=== PATIENT | male | born 1970 | race Caucasian/White ===

== ENCOUNTER 2017-01-20 20:21 | Emergency (ER) | payer MEDICAID ==
[2017-01-20 20:32] VITALS: RESP 18; O2SAT 98
--- NOTE | 2017-01-20 20:38 | EDPHY ---
H & P Stated Complaint: opiate detox at [facility] needs prescriptions Time Seen by Provider: 01/20/17 20:37 HPI/ROS: CHIEF COMPLAINT: Requesting medications for opioid dependence HISTORY OF PRESENT ILLNESS: The patient is referred to the emergency department [facility] for consideration of a short course of Librium to manage his symptoms of narcotic withdrawal. The patient uses approximately 0.25 g of heroin a day. He has been cutting back over the past several weeks. He is interested in complete abstinence at this point time. The patient denies any acute symptoms of withdrawal currently but is fairly certain he will develop more significant symptoms such as nausea and shakiness. The patient denies any suicidal or homicidal ideation. The patient denies any additional acute medical complaints. REVIEW OF SYSTEMS: A comprehensive 10 point review of systems is otherwise negative aside from elements mentioned in the history of present illness. Source: Patient - Personal History Current Tetanus/Diphtheria Vaccine: Yes Tetanus Vaccine Date: 2012 - Medical/Surgical History Hx Asthma: No Hx Chronic Respiratory Disease: No Hx Diabetes: No Hx Cardiac Disease: No Hx Renal Disease: No Hx Cirrhosis: No Hx Alcoholism: No Hx HIV/AIDS: No Hx Splenectomy or Spleen Trauma: No Other PMH: heroin addiction. ortho surg finger and foot, - Social History Smoking Status: Current every day smoker - Physical Exam Exam: General Appearance: Alert, no distress Eyes: Pupils equal and round no pallor or injection ENT, Mouth: Mucous membranes moist Respiratory: There are no retractions, lungs are clear to auscultation Cardiovascular: Regular rate and rhythm Gastrointestinal: Abdomen is soft and nontender, no masses, bowel sounds normal Neurological: A&O, normal motor function, normal sensory exam, normal cranial nerves Skin: Warm and dry, no rashes Musculoskeletal: Neck is supple nontender Extremities: symmetrical, full range of motion Psychiatric: Patient is oriented X 3, there is no agitation Constitutional: Initial Vital Signs Temperature (C) 37.6 C 01/20/17 20:27 Heart Rate 83 01/20/17 20:27 Respiratory Rate 18 01/20/17 20:27 Blood Pressure 108/67 01/20/17 20:27 O2 Sat (%) 98 01/20/17 20:27 O2 Delivery Mode Room Air Allergies/Adverse Reactions: PEANUT BUTTER Allergy (Intermediate, Uncoded 01/20/17 20:32) hives and lip swelling Home Medications: Medication Instructions Recorded NK [No Known Home Meds] 03/11/16 Medical Decision Making ED Course/Re-evaluation: The patient presents to the ED requesting Librium for narcotic withdrawal. The patient is in no acute distress at this point time. His neurologic exam is normal. His vital signs are stable. He has no evidence of significant withdrawal syndrome currently. The patient will be discharged to the [facility] with a prepack for Librium. He is given customary aftercare instructions and return precautions. Departure - Departure Disposition: Home, Routine, Self-Care Clinical Impression: Narcotic dependence Condition: Good Instructions: Narcotic Abuse (ED) Additional Instructions: 1. Please return to the [facility] with the medications you have been provided for treatment of your narcotic dependence. 2. Please return to the ED for intractable vomiting or other concerns. Referrals: Javy Benitez MD [Primary Care Provider] - As per Instructions
[2017-01-20] MEDS ORDERED: CHLORDIAZEPOXIDE 25MG PREPK#6 BTL TAKEHOME ONE (20:45)
[2017-01-20 20:54] VITALS: BP 119/75; PULSE 68; TEMP 99.3
[2017-01-20] MEDS ORDERED: ONDANSETRON 4MG PREPACK#2 BTL TAKEHOME ONE (20:55)
== END 2017-01-20 21:07 | disposition home or self-care (01) ==
DX: F11.20 Opioid dependence, uncomplicated (principal); F17.200 Nicotine dependence, unspecified, uncomplicated

== ENCOUNTER 2017-01-21 11:31 | Emergency (ER) | payer MEDICAID ==
[~2017-01-21 11:31] MED LIST: PROMETHAZINE HCL 25 MG SUPPR PR SCH
[2017-01-21] MEDS ORDERED: LORazepam 2 MG/ML INJ IVP ONE (12:36)
[2017-01-21] MEDS ORDERED: NS 1,000 ML IV ONE (12:37)
[2017-01-21] MEDS ORDERED: ONDANSETRON 4 MG/2 ML VIAL IVP ONE (12:37)
--- NOTE | 2017-01-21 12:38 | EDPHY ---
General Narrative: CHIEF COMPLAINT: Opiate withdrawal HISTORY OF PRESENT ILLNESS: Patient complains of nausea, vomiting, opiate withdrawal. He admits to heroin use of nearly 2 years duration. He last injected yesterday morning at 6:00 a.m.. This is a lower dose than normal for him, as he has been attempting to wean himself off. He wants to be clean from her with every time tries, he says that he extended symptoms of withdrawal lasting nearly 10-12 days. He has no chest pain. He has nausea vomiting and diarrhea. He is feeling very anxious about this. He was seen here last night. He was sent to the [facility] with Librium. He took the Librium with seem to help at 1st, but now is no longer helping. He is not suicidal or homicidal He has no other associated complaints or modifying factors. REVIEW OF SYSTEMS: Ten systems reviewed and are negative unless otherwise noted in the HPI PCP: Dr. Gray SPECIALISTS: None PAST MEDICAL HISTORY: Opiate addiction PAST SURGICAL HISTORY: Orthopedic surgery remotely SOCIAL HISTORY: Smoker. No alcohol. Daily heroin use FAMILY HISTORY: Noncontributory EXAMINATION General Appearance: Alert, no distress, diaphoretic Head: normocephalic, atraumatic Eyes: Pupils equal and round, no conjunctival pallor or injection ENT, Mouth: Mucous membranes moist. Airway patent. Neck: Normal inspection, supple, non-tender Respiratory: Lungs are clear to auscultation. No wheezing, rhonchi or crackles Cardiovascular: Regular rate and rhythm. No murmur Gastrointestinal: Abdomen is soft and nontender. No tympany or rigidity. Benign abdominal examination Back: non-tender, no bony abnormalities Neurological: GCS 15. No tremor. A&O, nonfocal, strength symmetric. Skin: Warm and dry, no rash. No petechiae or purpura Extremities: Nontender, no pedal edema Psychiatric: Remorseful for heroin use. Not suicidal. Not homicidal. No delirium. DIFFERENTIAL DIAGNOSES: Including but not limited to opiate withdrawal, heroin abuse, or dependency, nausea vomiting, dehydration MDM: 12:35 p.m. Acute opiate withdrawal approximately 18 hours duration. This is heroin use only, reportedly. He is shaking diaphoretic with vomiting. Vital signs are stable with mild tachypnea. No tachycardia. No hypotension. I have ordered IV fluid, laboratory studies, Ativan, clonidine and Zofran. I will monitor and discussed with case management. He denies any alcohol use or abuse. He does not exhibit any seizure-like activity. He is not encephalopathic or delirious. 1:30 p.m. Patient re-evaluated. Vital signs stable. No vomiting at this time. 2:00 p.m. Case discussed with briefcase sewer, odin. Request her consultation to see if the patient is a candidate for rehabilitation resources. She will evaluate and return my call. 2:40 p.m. Notified by case management manager that the patient would like to go back to the [facility] [place], they would like him to come back. He would like to go with [place] antinausea medication. He is comfortable this plan. 2:55 p.m. Re-evaluated the patient. Mother is still symptomatic he would like to go back on the medications. He has no chest pain. Vital signs are stable. He is not at risk for seizure as he is only withdrawing from opiates and benzodiazepines. He is comfortable this plan. He has a place at the [facility]. We will attempt to provide medication assistance for the clonidine p. o. and promethazine [place]. ED precautions discussed. - History Smoking Status: Current every day smoker - Objective Vital Signs: Initial Vital Signs Temperature (C) 99.0 F 01/21/17 11:35 Heart Rate 68 01/21/17 11:35 Respiratory Rate 22 H 01/21/17 11:35 Blood Pressure 130/94 H 01/21/17 11:35 O2 Sat (%) 99 01/21/17 11:35 O2 Delivery Mode Room Air Allergies/Adverse Reactions: PEANUT BUTTER Allergy (Intermediate, Uncoded 01/21/17 11:32) hives and lip swelling Home Medications: Medication Instructions Recorded LIBRIUM 01/21/17 Promethazine HCl [Phenergan] 25 mg RC Q8 #9 supp.rect 01/21/17 Zofran 01/21/17 clonIDINE [Catapres (*)] 0.1 mg PO TID #6 tab 01/21/17 Laboratory Results: Laboratory Results 01/21/17 13:05 01/21/17 13:05 WBC 9.77 10^3/uL H 10^3/uL (3.80-9.50) RBC 5.26 10^6/uL 10^6/uL (4.40-6.38) Hgb 16.1 g/dL g/dL (13.7-17.5) Hct 46.2 % % (40.0-51.0) MCV 87.8 fL fL (81.5-99.8) MCH 30.6 pg pg (27.9-34.1) MCHC 34.8 g/dL g/dL (32.4-36.7) RDW 12.5 % % (11.5-15.2) Plt Count 313 10^3/uL 10^3/uL (150-400) MPV 10.0 fL fL (8.7-11.7) Neut % (Auto) 71.4 % % (39.3-74.2) Lymph % (Auto) 20.5 % % (15.0-45.0) [place] % (Auto) 6.7 % % (4.5-13.0) Eos % (Auto) 0.5 % L % (0.6-7.6) Baso % (Auto) 0.4 % % (0.3-1.7) Nucleat RBC Rel Count 0.0 % % (0.0-0.2) Absolute Neuts (auto) 6.98 10^3/uL H 10^3/uL (1.70-6.50) Absolute Lymphs (auto) 2.00 10^3/uL 10^3/uL (1.00-3.00) Absolute Monos (auto) 0.65 10^3/uL 10^3/uL (0.30-0.80) Absolute Eos (auto) 0.05 10^3/uL 10^3/uL (0.03-0.40) Absolute Basos (auto) 0.04 10^3/uL 10^3/uL (0.02-0.10) Absolute Nucleated RBC 0.00 10^3/uL 10^3/uL (0-0.01) Immature Gran % 0.5 % % (0.0-1.1) Immature Gran # 0.05 10^3/uL 10^3/uL (0.00-0.10) Medications Given: Discontinued Medications Clonidine (Catapres) 0.1 mg PO EDNOW ONE Stop: 01/21/17 12:37 Last Admin: 01/21/17 13:09 Dose: 0.1 mg Diphenhydramine HCl (Benadryl Injection) 25 mg IVP EDNOW ONE Stop: 01/21/17 14:16 Last Admin: 01/21/17 14:35 Dose: 25 mg Sodium Chloride (Ns) 1,000 mls @ 0 mls/hr IV EDNOW ONE; Wide Open PRN Reason: Protocol Stop: 01/21/17 12:38 Last Admin: 01/21/17 13:08 Dose: 1,000 mls Lorazepam (Ativan Injection) 1 mg IVP EDNOW ONE Stop: 01/21/17 12:37 Last Admin: 01/21/17 13:07 Dose: 1 mg Metoclopramide HCl (Reglan Injection) 10 mg IVP EDNOW ONE Stop: 01/21/17 14:16 Last Admin: 01/21/17 14:35 Dose: 10 mg Ondansetron HCl (Zofran) 8 mg IVP EDNOW ONE Stop: 01/21/17 12:38 Last Admin: 01/21/17 13:04 Dose: 8 mg Departure - Departure Disposition: Home, Routine, Self-Care Clinical Impression: Opiate abuse, continuous, Opiate withdrawal Condition: Good Instructions: Narcotic Abuse (ED), Opioid Withdrawal (ED) Additional Instructions: 1. Medications as prescribed as needed 2. Follow up with the [facility] for further help 3. ED precautions as discussed Referrals: Javy Benitez MD [Primary Care Provider] - As per Instructions Stand Alone Forms: [facility] Prescriptions: clonIDINE [Catapres (*)] 0.1 mg PO TID #6 tab Promethazine HCl [Phenergan] 25 mg RC Q8 #9 supp.rect
[2017-01-21 13:30] LABS: % IMMATURE GRANULYOCYTES 0.5 % (0.0-1.1); ABSOLUTE IMMATURE GRANULOCYTES 0.05 10^3/uL (0.00-0.10); ADD DIFF? NO; ADD MORPH? NO; ADD SCAN? NO; ATYPICAL LYMPHOCYTE FLAG 10 (0-99); FRAGMENT RBC FLAG 0 (0-99); HEMATOCRIT 46.2 % (40.0-51.0); HEMOGLOBIN 16.1 g/dL (13.7-17.5); LEFT SHIFT FLG 0 (0-99); LIPEMIA HEMOLYSIS FLAG 90 (0-99); MEAN CELL HEMOGLOBIN 30.6 pg (27.9-34.1); MEAN CELL HEMOGLOBIN CONCENTR. 34.8 g/dL (32.4-36.7); MEAN CELL VOLUME 87.8 fL (81.5-99.8); PLATELET CLUMPS FLAG 0 (0-99); PLATELET COUNT 313 10^3/uL (150-400); RED BLOOD CELL COUNT 5.26 10^6/uL (4.40-6.38); RED CELL DISTRIBUTION WIDTH 12.5 % (11.5-15.2)
[2017-01-21] MEDS ORDERED: METOCLOPRAMIDE 10 MG/2 ML VIAL IVP ONE (14:15)
--- NOTE | 2017-01-21 14:30 | ASMTCMCOM ---
CM Note CM Note Notes: Met with patient in the ED per request. This patient presented to the ED with Opiate Withdrawal. Patient [facility] himself into the [facility] on 01/20 and wishes to return. He states he has been through this withdrawal in the past and knows what to expect. He feels the [facility] is the safest place for him to be as he continues to withdrawal. Notified primary RN of plan and also Alex Cline. Cab Voucher provided. Case Management available for any further needs. Date Signed: 01/21/2017 02:29 PM Electronically Signed By:Ludmila Sandra RN
[2017-01-21] MEDS ORDERED: ONDANSETRON 4MG PREPACK#2 BTL TAKEHOME ONE ×2 (14:55→15:55)
[2017-01-21] MEDS ORDERED: PROMETHAZINE 25 MG PREPACK #4 BTL TAKEHOME ONE ×2 (14:55→15:55)
[2017-01-21 16:02] VITALS: BP 142/84; PULSE 76; RESP 18; TEMP 98.2; O2SAT 96
== END 2017-01-21 16:00 | disposition home or self-care (01) ==
DX: F11.23 Opioid dependence with withdrawal (principal); F17.200 Nicotine dependence, unspecified, uncomplicated; E86.9 Volume depletion, unspecified; Z91.010 Allergy to peanuts
CPT/HCPCS: 96374; J1200; J2060; J2405; J2765